=== PATIENT | male | born 1980 | race Caucasian/White ===

== ENCOUNTER 2016-10-26 16:52 | Emergency (ER) | payer OTHER, BC ==
[2016-10-26 16:53] VITALS: BMI 19.3
[2016-10-26 17:08] VITALS: RESP 16; TEMP 98.1; O2SAT 100
[2016-10-26] MEDS ORDERED: Oxycodone/Acetaminophen 5/325 mg Tab PO STA (17:17)
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
[2016-10-26 17:47] LABS: BASO # 0.02 K/mm3 (0.0-2.0); BASO % 0.3 % (0.0-3.0); EOS # 0.1 (0.0-0.7); EOS % 1.8 % (1.5-5.0); GRAN # 2.92 (1.4-6.5); GRAN % 44.7 % (50.0-68.0); HEMOGLOBIN 17.1 gm/dL (14.0-18.0); LYMPH % 45.6 % (22.0-35.0); MEAN CELL VOLUME 92.3 fL (80.0-105.0); MEAN CORPUSCULAR HEMOGLOBIN 33.8 pg (25.0-35.0); MEAN CORPUSCULAR HGB CONC 36.6 g/dl (31.0-37.0); MEAN PLATELET VOLUME 9.4 fl (7.0-11.0); MONO # 0.5 (0.1-0.6); MONO % 7.6 % (1.0-6.0); PLATELET COUNT 198 10^3/uL (120.0-450.0); RBC 5.06 10^6/uL (3.5-6.1); RED CELL DISTRIBUTION WIDTH 11.5 % (11.5-14.5); WHITE BLOOD COUNT 6.5 10^3/ul (4.5-11.0)
[2016-10-26 17:54] LABS: ALB/GLOB RATIO 1.2 (1.1-1.8); ALBUMIN 4.5 g/dL (3.0-4.8); ALT/SGPT 45 U/L (7-56); AST/SGOT 31 U/L (15-59); BLOOD UREA NITROGEN 16 mg/dL (7-21); CALCIUM 9.6 mg/dL (8.4-10.5); GFR AFRICAN-AMERICAN > 60; GFR NON-AFRICAN AMERICAN > 60
[2016-10-26 18:07] LABS: TROPONIN I < 0.01 ng/mL
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
[2016-10-26 19:40] VITALS: BP 180/90; PULSE 77
--- NOTE | 2016-10-27 10:46 | CARD ---
APPROVED REPORT EKG Measurement Heart [id number] <Conclusion> Normal sinus rhythm Possible Left atrial enlargement Left ventricular hypertrophy NSSTW changes
== END 2016-10-26 20:55 | disposition home or self-care (01) ==
LOC: ED 16:52
DX: M54.2 Cervicalgia (principal); I10 Essential (primary) hypertension

== ENCOUNTER 2017-09-01 00:47 | Observation (INO) | payer BC, OTHER ==
[2017-09-01 01:13] VITALS: BMI 23.3
--- NOTE | 2017-09-01 01:35 | ED PDOC ---
Arrival/HPI - General Historian: Patient <Ty Bell - Last Filed: 09/01/17 03:55> <Antonio Jones - Last Filed: 09/01/17 20:05> - General Chief Complaint: High Blood Pressure Time Seen by Provider: 09/01/17 01:05 - History of Present Illness Narrative History of Present Illness (Text): Patient is a 37 year old male with a past medical history of hypertension who presents to the emergency department for evaluation and treatment of chest palpitations. States he went to clinic yesterday morning where his blood pressure was reportedly 240/140s. Patient was given antihypertensives however felt anxious throughout the day. Admits to being diagnosed with hypertension in his early 20s but did not take medications because of a lack of experiencing symptoms. Currently denies headache, dizziness, fever, chills, chest pain, shortness of breath, abdominal pain, nausea, vomiting, diarrhea, constipation, and urinary symptoms. PMD: not established 09/01/17 01:30 (Ty Bell) Past Medical History - Provider Review Nursing Documentation Reviewed: Yes - Travel History Have you recently traveled outside [place] w/in the past 3 mons?: No - Cardiac Hx Cardiac Disorders: Yes Hx Hypertension: Yes - Pulmonary Hx Respiratory Disorders: No - Neurological Hx Neurological Disorder: No - HEENT Hx HEENT Disorder: No - Renal Hx Renal Disorder: No - Endocrine/Metabolic Hx Endocrine Disorders: No - Hematological/Oncological Hx Blood Disorders: No - Psychiatric Hx Substance Use: No - Anesthesia Hx Anesthesia: No <Ty Bell - Last Filed: 09/01/17 03:55> Family/Social History - Physician Review Nursing Documentation Reviewed: Yes Family/Social History: Hypertension, CAD/[place] Smoking Status: Never Smoked Hx Alcohol Use: No Hx Substance Use: No <Ty Bell - Last Filed: 09/01/17 03:55> Allergies/Home Meds <Ty Bell - Last Filed: 09/01/17 03:55> <Antonio Jones - Last Filed: 09/01/17 20:05> Allergies/Adverse Reactions: Allergies No Known Allergies Allergy (Verified 09/01/17 01:13) Home Medications: Home Meds Medication Instructions Recorded Confirmed Losartan/Hydrochlorothiazide 1 tab PO DAILY 06/10/18 06/10/18 [Losartan-Hctz 100-25 mg Tab] amLODIPine [Norvasc] 5 mg PO DAILY 09/01/17 09/01/17 Review of Systems - Physician Review All systems were reviewed & negative as marked: Yes - Review of Systems Constitutional: Normal Eyes: Normal ENT: Normal Respiratory: Normal Cardiovascular: Palpitations Gastrointestinal: Normal Genitourinary Male: Normal Musculoskeletal: Normal Skin: Normal Neurological: Normal Endocrine: Normal Hemo/Lymphatic: Normal Psychiatric: Normal <BellTy roche - Last Filed: 09/01/17 03:55> Physical Exam Temperature: Afebrile Blood Pressure: Hypertensive Pulse: Regular Respiratory Rate: Normal Appearance: Positive for: Well-Appearing, Non-Toxic Pain Distress: None Mental Status: Positive for: Alert and Oriented X 3 - Systems Exam Head: Present: Atraumatic, Normocephalic Pupils: Present: PERRL Extroacular Muscles: Present: EOMI Conjunctiva: Present: Normal Mouth: Present: Moist Mucous Membranes Nose (External): Present: Atraumatic Neck: Present: Normal Range of Motion Respiratory/Chest: Present: Clear to Auscultation, Good Air Exchange. No: Respiratory Distress, Accessory Muscle Use Cardiovascular: Present: Regular Rate and Rhythm, Normal S1, S2 Abdomen: Present: Normal Bowel Sounds. No: Tenderness, Distention, Peritoneal Signs Upper Extremity: Present: Normal Inspection Lower Extremity: Present: Normal Inspection Neurological: Present: GCS=15, CN II-XII Intact, Speech Normal, Motor Func Grossly Intact, Normal Sensory Function Psychiatric: Present: Alert, Oriented x 3, Normal Insight, Normal Concentration , Normal Affect, Normal Mood <Ty Bell - Last Filed: 09/01/17 03:55> Vital Signs Temp Pulse Pulse Resp BP Pulse Ox 09/01/17 05:36 98.3 F 86 18 160/104 H 98 09/01/17 05:26 97.9 F 88 80 18 160/101 H 09/01/17 05:04 98.3 F 79 19 164/117 H 98 09/01/17 04:32 98.3 F 89 18 181/120 H 99 09/01/17 03:59 89 190/137 H 09/01/17 03:28 85 18 189/140 H 100 09/01/17 02:43 83 183/127 H 09/01/17 01:00 98.3 F 76 16 187/127 H 99 Medical Decision Making - Lab Interpretations I have reviewed the lab results: Yes - EKG Interpretation Interpreted by ED Physician: Yes Type: 12 lead EKG <Ty Bell - Last Filed: 09/01/17 03:55> <Antonio Jones - Last Filed: 09/01/17 20:05> ED Course and Treatment: Assessment and Plan: Patient is a 37 year old male with a past medical history of hypertension who presents to the emergency department for evaluation and treatment of chest palpitations. Hypertensive Urgency Chest Palpitations - CBC, CMP, Cardiac Isos - PT, PTT - Chest X-ray - EKG - Urinalysis 09/01/17 03:56 - elevated Hgb noted - pressure remains elevated- hydralazine 10mg IV x 1 - patient admitted under Dr. Ritchie service (Ty Bell) 09/01/17 02:11 Ky Mitchell is a 37 year old male who presents to the emergency department for a complaint of chest palpitations. In agreement with resident note which contains more details about the patient. Patient was seen and evaluated with resident. Came up with plan and treatment together. 09/01/17 20:05 seent with residnet chest pain/palpiations x few hours. atypical pain, however pain symptoms less than 6 hour onset will need serial trops. accepted by dr wan. (Antonio Jones) - Lab Interpretations Lab Results: 09/01/17 01:40 09/01/17 01:40 Lab Results 09/01/17 02:45: Urine Color Yellow, Urine Appearance Clear, Urine pH 6.5, Ur Specific [place] 1.010, Urine Protein Negative, Urine Glucose (UA) Negative, Urine Ketones Trace H, Urine Blood Negative, Urine Nitrate Negative, Urine Bilirubin Negative, Urine Urobilinogen 0.2, Ur Leukocyte Esterase Negative 09/01/17 01:40: Sodium 142, Potassium 4.0, Chloride 100, Carbon Dioxide 28, Anion Gap 19, BUN 12, Creatinine 1.0, Est GFR ( Amer) > 60, Est GFR (Non- Af Amer) > 60, Random Glucose 103, Calcium 9.9, Magnesium 1.9, Total Bilirubin 1.0, AST 33, ALT 41, Alkaline Phosphatase 78, Lactate Dehydrogenase 443, Total Creatine Kinase 65, Troponin I < 0.01, Total Protein 8.6 H, Albumin 4.7, Globulin 3.9, Albumin/Globulin Ratio 1.2 09/01/17 01:40: PT 11.4, INR 1.00, APTT 47.6 H 09/01/17 01:40: WBC 8.1 D, RBC 5.41, Hgb 18.3 H*, Hct 50.0, MCV 92.4, MCH 33.8 , MCHC 36.6, RDW 11.6, Plt Count 224, MPV 9.8, Gran % 63.2, Lymph % (Auto) 26.6 , [place] % (Auto) 8.0 H, Eos % (Auto) 2.1, Baso % (Auto) 0.1, Gran # 5.09, Lymph # (Auto) 2.1, [place] # (Auto) 0.6, Eos # (Auto) 0.2, Baso # (Auto) 0.01 - RAD Interpretation Radiology Orders: 09/01/17 01:30 CHEST PORTABLE [RAD] Stat - EKG Interpretation EKG Interpretation (Text): 09/01/17 01:39 EKG- NSR Left Ventricular hypertrophy, HR 69 bpm, QTc 432, (Ty Bell) - Medication Orders Current Medication Orders: Amlodipine Besylate (Norvasc) 10 mg PO DAILY [facility] Aspirin (Aspirin) 325 mg PO DAILY [facility] Last Admin: 09/01/17 10:04 Dose: 325 mg Famotidine (Pepcid) 40 mg PO HS [facility] Hydralazine HCl (Apresoline) 10 mg IVP Q4H PRN PRN Reason: Systolic Blood Pressure Last Admin: 09/01/17 17:22 Dose: 10 mg IVP Administration Document 09/01/17 17:22 KMS (Rec: 09/01/17 17:22 [id number] Charges for Administration # of IVP Administrations 1 MAY Pulse and Blood Pressure Document 09/01/17 17:22 KMS (Rec: 09/01/17 17:22 [id number]) Blood Pressure Blood Pressure (100/60-150/90) 185/105 Hydrochlorothiazide (Hydrodiuril) 25 mg PO DAILY [facility] Last Admin: 09/01/17 10:05 Dose: 25 mg Hydrochlorothiazide (Hydrodiuril) 25 mg PO DAILY [facility] Last Admin: 09/01/17 12:23 Dose: 25 mg Losartan Potassium (Cozaar) 100 mg PO DAILY [facility] Last Admin: 09/01/17 10:05 Dose: 100 mg Metoprolol Tartrate (Lopressor) 25 mg PO BID [facility] Last Admin: 09/01/17 17:21 Dose: 25 mg MAR Pulse and Blood Pressure Document 09/01/17 17:21 KM (Rec: 09/01/17 17:21 [place] [id number]) Blood Pressure Blood Pressure (100/60-150/90) 185/105 Discontinued Medications Amlodipine Besylate (Norvasc) 5 mg PO DAILY [facility] Last Admin: 09/01/17 10:05 Dose: 5 mg MAR Pulse and Blood Pressure Document 09/01/17 10:05 [facility] (Rec: 09/01/17 10:05 [place] [id number]) Pulse Pulse Rate (60-90) 104 Blood Pressure Blood Pressure (100/60-150/90) 172/127 Aspirin (Aspirin) 325 mg PO STAT ST[facility] Stop: 09/01/17 03:45 Last Admin: 09/01/17 04:02 Dose: 325 mg Hydralazine HCl (Apresoline) 10 mg IVP STAT [facility] Stop: 09/01/17 03:46 Last Admin: 09/01/17 03:59 Dose: 10 mg IVP Administration Document 09/01/17 03:59 [place] (Rec: 09/01/17 04:02 [id number]) Charges for Administration # of IVP Administrations 1 MAR Pulse and Blood Pressure Document 09/01/17 03:59 [place] (Rec: 09/01/17 04:02 [id number]) Pulse Pulse Rate (60-90) 89 Blood Pressure Blood Pressure (100/60-150/90) 190/137 Lorazepam (Ativan) 0.5 mg IVP STAT STA PRN Reason: Protocol Stop: 09/01/17 02:03 Last Admin: 09/01/17 02:28 Dose: 0.5 mg IVP Administration Document 09/01/17 02:28 (Rec: 09/01/17 02:28 [id number] Charges for Administration # of IVP Administrations 1 Non-Formulary Medication (Losartan/Hydrochlorothiazide [Losartan-Hctz 100-25 Mg Tab]) 1 tab PO DAILY [facility] <Ty Bell - Last Filed: 09/01/17 03:55> - Scribe Statement The provider has reviewed the documentation as recorded by the Scribe <Antonio Jones - Last Filed: 09/01/17 20:05> - Scribe Statement Cande Conroy Provider Scribe Attestation: All medical record entries made by the Scribe were at my direction and personally dictated by me. I have reviewed the chart and agree that the record accurately reflects my personal performance of the history, physical exam, medical decision making, and the department course for this patient. I have also personally directed, reviewed, and agree with the discharge instructions and disposition. (Antonio Jones) Disposition/Present on Arrival - Present on Arrival Any Indicators Present on Arrival: No History of DVT/PE: No History of Uncontrolled Diabetes: No Urinary Catheter: No History of Decub. Ulcer: No History Surgical Site Infection Following: None - Disposition Have Diagnosis and Disposition been Completed?: Yes Disposition Time: 04:06 Patient Plan: Admission <Ty Bell - Last Filed: 09/01/17 03:55> <Antonio Jones - Last Filed: 09/01/17 20:05> - Disposition Diagnosis: Hypertension, Palpitation Disposition: HOSPITALIZED Patient Problems: Current Active Problems Problem Status Onset Hypertension Acute Palpitation Acute Condition: GOOD
[2017-09-01 02:05] LABS: ALB/GLOB RATIO 1.2 (1.1-1.8); ALBUMIN 4.7 g/dL (3.0-4.8); ALT/SGPT 41 U/L (7-56); AST/SGOT 33 U/L (17-59); BASO # 0.01 K/mm3 (0.0-2.0); BASO % 0.1 % (0.0-3.0); BLOOD UREA NITROGEN 12 mg/dL (7-21); CALCIUM 9.9 mg/dL (8.4-10.5); EOS # 0.2 (0.0-0.7); EOS % 2.1 % (1.5-5.0); GFR AFRICAN-AMERICAN > 60; GFR NON-AFRICAN AMERICAN > 60; GRAN # 5.09 (1.4-6.5); GRAN % 63.2 % (50.0-68.0); LYMPH # 2.1 (1.2-3.4); LYMPH % 26.6 % (22.0-35.0); MEAN CELL VOLUME 92.4 fl (80.0-105.0); MEAN CORPUSCULAR HEMOGLOBIN 33.8 pg (25.0-35.0); MEAN CORPUSCULAR HGB CONC 36.6 g/dl (31.0-37.0); MEAN PLATELET VOLUME 9.8 fl (7.0-11.0); MONO # 0.6 (0.1-0.6); RBC 5.41 10^6/uL (3.5-6.1); RED CELL DISTRIBUTION WIDTH 11.6 % (11.5-14.5); WHITE BLOOD COUNT 8.1 10^3/ul (4.5-11.0)
[2017-09-01 02:11] LABS: PARTIAL THROMBOPLASTIN TIME 47.6 Seconds (25.1-36.5); PROTHROMBIN TIME 11.4 SECONDS (9.4-12.5)
[2017-09-01 02:14] LABS: HEMOGLOBIN 18.3 g/dL (14.0-18.0)
[2017-09-01 02:16] LABS: TROPONIN I < 0.01 ng/mL
[2017-09-01 03:12] LABS: PH,URINE 6.5 (4.7-8.0); URINE BILIRUBIN NEGATIVE (NEGATIVE); URINE BLOOD NEGATIVE (NEGATIVE); URINE GLUCOSE (UA) NEGATIVE (NEGATIVE); URINE LEUKOCYTE ESTERASE NEGATIVE Leu/uL (NEGATIVE); URINE PROTEIN NEGATIVE mg/dL (<30 mg/dL); URINE UROBILINOGEN 0.2 E.U./dL (<1 E.U./dL)
[2017-09-01 03:13] LABS: URINE APPEARANCE CLEAR (CLEAR); URINE COLOR YELLOW (YELLOW)
--- NOTE | 2017-09-01 08:22 | RAD ---
HISTORY: palpitations COMPARISON: No prior. FINDINGS: LUNGS: No active pulmonary disease. PLEURA: No significant pleural effusion identified, no pneumothorax apparent. CARDIOVASCULAR: Normal. OSSEOUS STRUCTURES: No significant abnormalities. VISUALIZED UPPER ABDOMEN: Normal. OTHER FINDINGS: None. IMPRESSION: No active disease.
--- NOTE | 2017-09-01 09:55 | CP.PCM.CON ---
History of Present Illness - History of Present Illness History of Present Illness: Lying in bed, awake,alert,oriented, complaining of chest palpitations,denies shortness of breath Reason for consultation: Cardiac evaluation, chest palpitation, uncontrolled hypertension (initial BP 189/140 in ER) Brief history of present illness: A 37 year old male who came in to the ER due to chest palpitations. He went to the clinic 1 day [employer] and his BP was 240/140' s. He was given antihypertensive medications and was sent home. He felt anxious yesterday and decided to go to the ER. initial blood pressure in ER was 189/ 140. He was diagnosed with hypertension in his early 20's but did not take medications due to not experiencing any symptoms. Denies shortness of breath, denies chest pain. Seen and examined by me and Dr. Cox Review of Systems - Constitutional Constitutional: As Per HPI - EENT Additional comments: denies any problems - Cardiovascular Additional comments: palpitations - Respiratory Additional comments: denies any problems - Gastrointestinal Additional comments: denies nausea and vomiting - Genitourinary Additional comments: denies any problems Past Patient History - Past Social History Smoking Status: Never Smoked - CARDIAC Hx Cardiac Disorders: Yes Hx Hypertension: Yes - PULMONARY Hx Respiratory Disorders: No - NEUROLOGICAL Hx Neurological Disorder: No - HEENT Hx HEENT Problems: No - RENAL Hx Chronic Kidney Disease: No - ENDOCRINE/METABOLIC Hx Endocrine Disorders: No - HEMATOLOGICAL/ONCOLOGICAL Hx Blood Disorders: No - MUSCULOSKELETAL/RHEUMATOLOGICAL Hx Falls: No - PSYCHIATRIC Hx Substance Use: No - SURGICAL HISTORY Hx Surgeries: No - ANESTHESIA Hx Anesthesia: No Meds Allergies/Adverse Reactions: Allergies Allergy/AdvReac Type Severity Reaction Status Date / Time No Known Allergies Allergy Verified 09/01/17 01:13 - Medications Medications: Current Medications Amlodipine Besylate (Norvasc) 5 mg PO DAILY [facility] Aspirin (Aspirin) 325 mg PO DAILY [facility] Famotidine (Pepcid) 40 mg PO HS [facility] Hydralazine HCl (Apresoline) 10 mg IVP Q4H PRN PRN Reason: Systolic Blood Pressure Hydrochlorothiazide (Hydrodiuril) 25 mg PO DAILY [facility] Losartan Potassium (Cozaar) 100 mg PO DAILY [facility] Physical Exam - Constitutional Appears: No Acute Distress - Head Exam Head Exam: NORMOCEPHALIC - Eye Exam Eye Exam: Normal appearance - ENT Exam ENT Exam: Mucous Membranes Moist - Respiratory Exam Respiratory Exam: Clear to Auscultation Bilateral, NORMAL BREATHING PATTERN - Cardiovascular Exam Cardiovascular Exam: REGULAR RHYTHM, +S1, +S2 Additional comments: NSR 80's/min telemetry - GI/Abdominal Exam GI & Abdominal Exam: Normal Bowel Sounds, Soft - Neurological Exam Neurological exam: Alert, Oriented x3 - Psychiatric Exam Psychiatric exam: Normal Affect, Normal Mood - Skin Skin Exam: Intact, Normal Color, Warm Results - Vital Signs Recent Vital Signs: Last Vital Signs Temp 97.9 F 09/01/17 06:00 Pulse 88 09/01/17 06:00 Resp 18 09/01/17 06:00 BP 160/101 H 09/01/17 06:00 Pulse Ox 98 09/01/17 06:00 - Labs Result Diagrams: 09/01/17 01:40 09/01/17 01:40 Assessment & Plan - Assessment and Plan (Free Text) Assessment: A 37 year old male who came in to the ER due to chest palpitations. He went to the clinic 1 day prior to coming to [facility] ER and his BP was 240/140's. He was given antihypertensive medications and was sent home. He felt anxious yesterday and decided to go to the ER. He was diagnosed with hypertension in his early 20' s but did not take medications due to not experiencing any symptoms. Denies shortness of breath, denies chest pain. Denies any other medical history. No previous cardiac work up at [facility]. Plan: Troponin level normal Uncontrolled hypertension Started on Norvasc 5 mg daily,Hydrodiuril 25 mg daily, Cozaar 100 mg daily, Hydralazine 10 mg IVP every 4 hours PRN Will increase Norvasc to 10 mg daily EKG showed NSR, 69/min , with left ventricular hyperthropy Will order ECHO to evaluate LV function Continue current treatment Continue current medications Hemoglobin elevated 18.3 and PTT 47.6 Consider hematology consult Cardiac diet Will follow up Plan and treatment discussed with Dr. Cox Thank you for the opportunity in taking care of Mr. Ky Mitchell - Date & Time Date: 09/01/17 Time: 07:05
[2017-09-01] MEDS ORDERED: Non Formulary Medication (Losartan/Hydrochlorothiazide [Losartan-Hctz 100-25 Mg Tab] 1 TAB PO SCH (10:00)
--- NOTE | 2017-09-01 10:56 | CARD ---
APPROVED REPORT EKG Measurement Heart [id number] IN [id number] [id number] <Conclusion> Normal sinus rhythm Left ventricular hypertrophy with repolarization abnormality No change
[2017-09-02 00:05] VITALS: O2SAT 97
[2017-09-02 08:07] LABS: BASO # 0.02 K/mm3 (0.0-2.0); BASO % 0.2 % (0.0-3.0); EOS % 0.4 % (1.5-5.0); GRAN # 6.03 (1.4-6.5); GRAN % 72.4 % (50.0-68.0); LYMPH # 1.6 (1.2-3.4); LYMPH % 18.8 % (22.0-35.0); MEAN CELL VOLUME 93.5 fl (80.0-105.0); MEAN CORPUSCULAR HGB CONC 35.3 g/dl (31.0-37.0); MEAN PLATELET VOLUME 9.8 fl (7.0-11.0); MONO # 0.7 (0.1-0.6); MONO % 8.2 % (1.0-6.0); RBC 5.51 10^6/uL (3.5-6.1); WHITE BLOOD COUNT 8.3 10^3/ul (4.5-11.0)
[2017-09-02 08:10] LABS: HEMOGLOBIN 18.2 g/dL (14.0-18.0)
[2017-09-02 08:56] LABS: LDL CHOLESTEROL 143 mg/dL (0-129)
[2017-09-02 09:03] LABS: ALB/GLOB RATIO 1.2 (1.1-1.8); ALBUMIN 4.5 g/dL (3.0-4.8); ALT/SGPT 40 U/L (7-56); AST/SGOT 27 U/L (17-59); BLOOD UREA NITROGEN 28 mg/dL (7-21); CALCIUM 9.4 mg/dL (8.4-10.5); GFR AFRICAN-AMERICAN > 60; GFR NON-AFRICAN AMERICAN > 60; HDL CHOLESTEROL 50 mg/dL (29-60)
--- NOTE | 2017-09-02 09:49 | CARD ---
APPROVED REPORT EKG Measurement Heart [id number] IA 146P75 [id number] <Conclusion> Sinus tachycardia Left ventricular hypertrophy with repolarization abnormality STTW changes c/w ischemia Prolonged QTc
--- NOTE | 2017-09-02 15:10 | PN ---
DATE: 09/02/2017 REASON FOR CONSULTATION AND FOLLOWUP: Uncontrolled hypertension, cardiac evaluation, initial blood pressure in the ER was 189/140, noncompliance to medications. SUBJECTIVE: The patient denies any chest pain, shortness of breath, or any palpitations. Feels a lot better. Wanted to go home. PHYSICAL EXAMINATION: VITAL SIGNS: Temperature afebrile, heart rate 98, blood pressure 164/105. HEENT: PERRLA. Extraocular muscles intact. NECK: Supple. No carotid bruit or thyromegaly. CHEST: Clear to auscultation. HEART: S1, S2 regular. ABDOMEN: Soft. EXTREMITIES: Clubbing, cyanosis negative. LABORATORY DATA: Blood workup as follows: WBC 8.3, hemoglobin , hematocrit 51.5, platelet count 233. Chemistry shows sodium 140, potassium 3.5, chloride 100, carbon dioxide 25, anion gap of 18, BUN 28, creatinine 1.3. TSH is 1.4. Triglyceride 118, total cholesterol 138, LDL 143, HDL 50. Troponin remained negative at 0.01, 0.01, 0.04, and 0.03. IMPRESSION: No evidence of acute myocardial infarction, uncontrolled hypertension, hypertriglyceridemia, hypokalemia. The patient was told a year ago to be on amlodipine and losartan, but the patient is noncompliant, came in with uncontrolled hypertension. RECOMMENDATIONS: We will get echo to assess LV function. Continue losartan 100 mg daily. Continue hydrochlorothiazide 25 mg daily. Continue metoprolol 25 mg daily. The patient is also on amlodipine 10 mg daily and will put on spironolactone and monitor the blood pressure. If the blood pressure after these medications remained stable, possible discharge. We will schedule a stress test as an outpatient. Discussed with the patient and sheet was given to Frida, Cardiology to schedule a stress test in 1-2 weeks. We will reassess in two hours for the blood pressure. If remained stable, we will discontinue telemetry and possible discharge if echo remained within the normal limit. Thank you, Dr. Macias, for providing us the opportunity in taking care of the patient, Ky Mitchell. Jackie Cox MD
--- NOTE | 2017-09-02 16:00 | HP ---
DATE OF EXAM: 09/01/2017 Patient was seen and examined on the bedside on 09/01/2017. CHIEF COMPLAINT: High blood pressure, palpitation, shortness of breath. HISTORY OF PRESENT ILLNESS: Mr. Ky Mitchell is a 37-year-old male with past medical history of hypertension and past family history of high blood pressure, came to the emergency department for evaluation and treatment of chest pain. Patient's blood pressure was reported at 240/140. Patient was given antihypertensive medication, slightly anxious throughout the day, admits to being diagnosed with hypertension since he was in the 20s and did not take medication because of lack of experiencing symptoms. Currently, denies headache, fever, chills, nausea, vomiting, or diarrhea. No shortness of breath. No abdominal pain. No constipation. No urinary symptoms. PAST MEDICAL HISTORY: History of hypertension. FAMILY HISTORY: Hypertension, coronary artery disease, and [place]. HABITS: Never smoked. No drugs. No ethanol. ALLERGIES: PATIENT IS NOT ALLERGIC WITH ANY MEDICATIONS. HOME MEDICATIONS: hydrochlorothiazide, amlodipine. REVIEW OF SYSTEMS: Patient was seen and examined on the bedside on 09/01/2017. was sitting on the bedside also. That moment, no headache, no dizziness. Feeling sometimes little bit of palpitation. No fever. No chills. No nausea, vomiting, or diarrhea. No headache. No dizziness. No feeling of passing out. PHYSICAL EXAMINATION: VITAL SIGNS: Temperature 98.3, pulse 86, blood pressure 116/104 and 187/27. HEENT: Head normocephalic, atraumatic. Eyes, PERRLA. Extraocular muscles intact. Conjunctivae clear. Nose patent. Mucous membranes moist. NECK: Supple. No carotid bruit, JVD, or thyromegaly. CHEST: Bilaterally symmetrical. HEART: S1 and S2 positive. LUNGS: Clear to auscultation. ABDOMEN: Soft. Bowel sounds present. No organomegaly. EXTREMITIES: No edema. No cyanosis. NEUROLOGIC: Patient is awake and alert. Moving all four extremities. No focal deficit. LABORATORY DATA: White blood cells 8.1, hemoglobin 18.3, hematocrit 50.0, platelets of 224. Sodium 140, potassium 4.0, BUN 12, creatinine 1.0, glucose 103. ASSESSMENT AND PLAN: Mr. Ky Mitchell is a 37-year-old male with polycythemia, came with high blood pressure, palpitation. Called Cardiology consult with Dr. Kilpatrick. Chest x-ray was done. Patient seen by Dr. Shonna Marino's nurse practitioner. Blood pressure looks like was uncontrolled. Palpitation is better. Actually, patient was sent by one of the clinic in [facility] to ER because blood pressure of 240/110. He was given antihypertensive medications , but looking anxious and according to him, he in the 20s he used to have high blood pressure, Denies shortness of breath, chest pain. Discussion done with patient's . All questions answered. Repeat labs. Troponin is normal. Started Norvasc 5 mg, HydroDIURIL 25 mg, Cozaar 100, hydralazine 10 IV every 4 hours p.r.n. We will order echo to evaluate left ventricular function. Called Cardiology consult. Discussion done with . We will repeat labs. We will follow up. Lisa Macias MD MTDD
[2017-09-02 17:51] VITALS: BP 164/87
[2017-09-02 18:03] VITALS: RESP 20; TEMP 98.5
[2017-09-02 18:19] VITALS: PULSE 94
--- NOTE | 2017-09-02 21:35 | US ---
PROCEDURE: Bilateral renal artery duplex ultrasound. CLINICAL HISTORY: Renal artery stenosis. Uncontrolled hypertension. Evaluate for renovascular hypertension. PHYSICIAN(S): Julito Friend M.D. TECHNIQUE: Duplex sonography with color-flow Doppler was used to evaluate the visualized segments of the main renal arteries. The patient was evaluated in a fasting state. Imaging in a supine and decubitus position was performed. Limited evaluation of the arcuate waveforms and resistive indices were performed. FINDINGS: The overall quality of the study is adequate. The kidneys are normal in size, shape, and location. The right kidney measures 9.8cm in length and the left kidney measures 11.1cm in length. No solid renal masses, abnormal calcifications, or hydronephrosis is seen. The main right renal artery is well visualized from the aorta to the hilum. The peak systolic velocity in the right main renal artery is 131 cm/sec. This is consistent with a 0 to 49% stenosis in the main right renal artery. The arcuate waveforms are normal. The resistive index is normal. The main left renal artery is also fairly well seen from its origin to the renal hilum. The peak systolic velocity in the main left renal artery is 134cm/sec. This corresponds to a 0 to 49% stenosis in the main left renal artery. The arcuate waveforms and resistive indices are normal. IMPRESSION: 1. The main renal arteries are fairly well visualized. 2. No sonographically significant stenosis is identified. 3. The kidneys are normal and symmetric in size. There are no solid renal masses, abnormal calcifications or hydronephrosis noted.
--- NOTE | 2017-09-03 12:38 | CARD ---
APPROVED REPORT EXAM: Two-dimensional and M-mode echocardiogram with Doppler and color Doppler. INDICATION 2D DIMENSIONS IVSd1.5 (0.7-1.1cm)LVDd4.3 (3.9-5.9cm) PWd1.2 (0.7-1.1cm)LVDs2.6 (2.5-4.0cm) FS (%) 38.6 %LVEF (%)69.3 (>50%) M-Mode DIMENSIONS Left Atrium (MM)3.40 (2.5-4.0cm)Aortic Root2.90 (2.2-3.7cm) Aortic Cusp Exc.1.70 (1.5-2.0cm) Aortic Valve AoV Peak Pytcmvro609.0cm/Janae Peak GR.9mmHg Mitral Valve MV E Lyulwbpa51.6cm/sMV A Ypbcmkwd78.1cm/sE/A ratio1.0 TDI Lateral E' Peak V6.19cm/sMedial E' Peak V7.21cm/sE/Lateral E'11.1 E/Medial E'9.5 Tricuspid Valve TR Peak Zhbskeiq870zt/sRAP UESRBIIN14duNhZI Peak Gr.26mmHg [id number] LEFT VENTRICLE The left ventricle is normal size. There is moderate concentric left ventricular hypertrophy. The left ventricular function is normal.EF-65% There is normal LV segmental wall motion. Transmitral Doppler flow pattern is Grade II-pseudonormal filling dynamics. No left ventricle thrombus noted on this study. There is no ventricular septal defect visualized. There is no left ventricular aneurysm. There is no mass noted in the left ventricle. RIGHT VENTRICLE The right ventricle is normal size. There is normal right ventricular wall thickness. The right ventricular systolic function is normal. ATRIA The left atrium size is normal. The right atrium size is normal. The interatrial septum is intact with no evidence for an atrial septal defect. AORTIC VALVE The aortic valve is thickened but opens well. No aortic regurgitation is present. There is no aortic valvular stenosis. There is no aortic valvular vegetation. MITRAL VALVE The mitral valve is thickened but opens well. Mitral regurgitation is trace. There is no mitral valve stenosis. There is no evidence of mitral valve prolapse. TRICUSPID VALVE The tricuspid valve leaflets are thickened , but open well. There is trace tricuspid regurgitation.RVSP-36 mmof hg. There is no tricuspid valve stenosis. There is no tricuspid valve prolapse or vegetation. PULMONIC VALVE The pulmonary valve is normal in structure. There is no pulmonic valvular regurgitation. There is no pulmonic valvular stenosis. GREAT VESSELS The aortic root is normal in size. The ascending aorta is normal in size. The pulmonary artery is normal. The IVC is normal in size and collapses >50% with inspiration. PERICARDIAL EFFUSION There is no pleural effusion. There is no pericardial effusion. <Conclusion> Normal chamber Size. LVH, EF-65% Trace MR/TR RVSP-36 mmof hg.
== END 2017-09-02 19:10 | disposition home or self-care (01) ==
LOC: ED 00:47 → ERH 03:45 → 2RSO 05:49
PROVIDERS: ADMIT Internal Medicine; ATTEND Internal Medicine
DX: I10 Essential (primary) hypertension (principal); D75.1 Secondary polycythemia; Z79.899 Other long term (current) drug therapy; Z91.14 Patient's other noncompliance with medication regimen; Z82.49 Family history of ischemic heart disease and other diseases of the circulatory system; R00.2 Palpitations; E78.1 Pure hyperglyceridemia; E87.6 Hypokalemia
CPT/HCPCS: 36415; 71045; 80053; 80061; 81003; 82550; 83615; 83735; 84100; 84443; 84484; 85025; 85610; 85730; 93005; 93306; 93975; 96374; 96375; 96376; 99285; G0378; J0360; J2060

== ENCOUNTER 2017-11-27 19:02 | Emergency (ER) | payer BC ==
[2017-11-27 19:13] VITALS: BMI 21.3
[2017-11-27 19:15] VITALS: RESP 18; TEMP 98.5
[2017-11-27] MEDS ORDERED: Labetalol 5 mg/ml Inj 20ML IV STA (20:28)
--- NOTE | 2017-11-27 20:28 | ED PDOC ---
Arrival/HPI - General Historian: Patient, Spouse <En Vann - Last Filed: 11/27/17 22:03> <Randy Damico - Last Filed: 11/30/17 11:18> - General Chief Complaint: GI Problem Time Seen by Provider: 11/27/17 19:44 - History of Present Illness Narrative History of Present Illness (Text): 11/27/17 20:17 37 year old male, past medical history of hypertension and hemorrhoids, presents to the emergency department with worsening pain with bowel movements secondary to prolapsed hemorrhoid. Patient has had hemorrhoids for over 10 years however recently it has become more uncomfortable. He states spicy foods aggravate the hemorrhoids and for the past week he has been eating very spicy faroese and malay food. He has been using preparation H for symptomatic relief however when the hemorrhoid prolapses he has difficulty reducing it. With bowel movements he does endorse bleeding. 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 Of note, upon arrival his blood pressure was elevated. He has a history of high blood pressure currently being controlled by Losartan and Amlodipine. He states his pressures at home are usually 130-140/90. When he gets nervous or stressed his blood pressure does rise and believes that is the case today. Repeat BP was 185/115. Denies fever, chills, nausea, vomiting, shortness of breath, cough, chest pain, palpitations, headache, dizziness, gait abnormalities, abdominal pain, or urinary symptoms. (En Vann) Past Medical History - Provider Review Nursing Documentation Reviewed: Yes - Infectious Disease Hx of Infectious Diseases: None - Cardiac Hx Cardiac Disorders: Yes Hx Hypertension: Yes - Pulmonary Hx Respiratory Disorders: No - Neurological Hx Neurological Disorder: No - HEENT Hx HEENT Disorder: No - Renal Hx Renal Disorder: No - Endocrine/Metabolic Hx Endocrine Disorders: No - Hematological/Oncological Hx Blood Disorders: No - Integumentary Hx Dermatological Disorder: No - Musculoskeletal/Rheumatological Hx Musculoskeletal Disorders: No - Gastrointestinal Hx Gastrointestinal Disorders: No - Genitourinary/Gynecological Hx Genitourinary Disorders: No - Psychiatric Hx Psychophysiologic Disorder: No Hx Substance Use: No - Anesthesia Hx Anesthesia: No <En Vann - Last Filed: 11/27/17 22:03> Family/Social History - Physician Review Nursing Documentation Reviewed: Yes Family/Social History: Hypertension Smoking Status: Former Smoker Hx Alcohol Use: Yes Frequency of alcohol use: Socially Hx Substance Use: No <En Vann - Last Filed: 11/27/17 22:03> Allergies/Home Meds <En Vann - Last Filed: 11/27/17 22:03> <MookieRandy - Last Filed: 11/30/17 11:18> Allergies/Adverse Reactions: Allergies No Known Allergies Allergy (Verified 11/27/17 19:13) Home Medications: Home Meds Medication Instructions Recorded Confirmed Losartan/Hydrochlorothiazide 1 tab PO DAILY 09/01/17 11/27/17 [Losartan-Hctz 100-25 mg Tab] amLODIPine [Norvasc] 5 mg PO DAILY 09/01/17 11/27/17 Review of Systems - Physician Review All systems were reviewed & negative as marked: Yes - Review of Systems Constitutional: absent: Fevers Respiratory: absent: SOB, Cough Cardiovascular: absent: Chest Pain, Palpitations Gastrointestinal: Stool Changes, Hematochezia. absent: Abdominal Pain, Nausea, Vomiting Genitourinary Male: absent: Dysuria, Hematuria Neurological: absent: Headache, Dizziness, Gait Changes <En Vann - Last Filed: 11/27/17 22:03> Physical Exam Vital Signs Reviewed: Yes Temperature: Afebrile Blood Pressure: Hypertensive Pulse: Regular Respiratory Rate: Normal Appearance: Positive for: Well-Appearing, Non-Toxic, Comfortable Pain Distress: None Mental Status: Positive for: Alert and Oriented X 3 - Systems Exam Head: Present: Atraumatic, Normocephalic Pupils: Present: PERRL Extroacular Muscles: Present: EOMI Mouth: Present: Moist Mucous Membranes Respiratory/Chest: Present: Clear to Auscultation, Good Air Exchange. No: Respiratory Distress, Accessory Muscle Use Cardiovascular: Present: Regular Rate and Rhythm, Normal S1, S2, Peripheal Pulses Present. No: Murmurs Abdomen: No: Tenderness, Distention, Peritoneal Signs Rectal: Present: Occult Blood, Hemorrhoids, Normal Rectal Tone. No: Rectal Tenderness, Gross Blood, Melena Skin: Present: Warm, Dry, Normal Color. No: Rashes Psychiatric: Present: Alert, Oriented x 3 <SooEn - Last Filed: 11/27/17 22:03> <Randy Damico - Last Filed: 11/30/17 11:18> - Physical Exam Narrative Physical Exam (Text): Christiane Andujar All medical record entries made by the Scribe were at my direction and personally dictated by me. I have reviewed the chart and agree that the record accurately reflects my personal performance of the history, physical exam, medical decision making, and the department course for this patient. I have also personally directed, reviewed, and agree with the discharge instructions and disposition. (Randy Damico) Vital Signs Temp Pulse Resp BP Pulse Ox 11/27/17 21:33 71 18 141/101 H 100 11/27/17 21:11 72 18 140/108 H 98 11/27/17 20:42 80 185/115 H 11/27/17 19:14 98.5 F 75 18 195/116 H 99 Medical Decision Making <En Vann - Last Filed: 11/27/17 22:03> <Randy Damico - Last Filed: 11/30/17 11:18> ED Course and Treatment: 11/27/17 21:16 37M, PMH of HTN and hemorrhoids, presents with bleeding hemorrhoids. During examination no gross blood was noted. FOBT was positive. BP in ED was elevated. Given one dose of labetalol and BP went down to 145/108. CBC within normal limits. CMP showed low potassium, repleted in ED. EKG showed normal sinus with LVH, no t wave abnormalities. Patient is currently asymptomatic. Discussed in length about the importance of a proper diet with fiber and less spicy foods to alleviate hemorrhoid flares. Discussed the importance of exercise, low sodium diet, medication compliance, and regular follow up with primary medical doctor regarding hypertension. Patient will follow up with a general surgeon, Dr. Morel, regarding the hemorrhoids and further evaluation. Patient will follow up with primary medical doctor within the next 3-5 days. If symptoms worsen, please return to the ED. Patient verbalized agreement and understanding of the treatment plan. Case reviewed and discussed with attending provider. (En Vann) In agreement with resident note, which includes further HPI details. Patient was seen and evaluated with resident, came up with plan and treatment together. (Randy Damico) - Lab Interpretations Lab Results: 11/27/17 20:03 11/27/17 20:03 Lab Results 11/27/17 20:03: Sodium 141, Potassium 3.1 L, Chloride 101, Carbon Dioxide 28, Anion Gap 15, BUN 9, Creatinine 0.8, Est GFR ( Amer) > 60, Est GFR (Non- Af Amer) > 60, Random Glucose 96, Calcium 9.5, Phosphorus 3.3, Magnesium 2.0, Total Bilirubin 1.1, AST 24, ALT 31, Alkaline Phosphatase 73, Total Protein 7.9 , Albumin 4.4, Globulin 3.5, Albumin/Globulin Ratio 1.3 11/27/17 20:03: WBC 6.8, RBC 4.78, Hgb 15.9 D, Hct 44.2, MCV 92.5, MCH 33.3, MCHC 36.0, RDW 11.6, Plt Count 211, MPV 9.5, Gran % 58.1, Lymph % (Auto) 32.8, Peach % (Auto) 7.8 H, Eos % (Auto) 1.2 L, Baso % (Auto) 0.1, Gran # 3.96, Lymph # (Auto) 2.2, Peach # (Auto) 0.5, Eos # (Auto) 0.1, Baso # (Auto) 0.01 - Medication Orders Current Medication Orders: Discontinued Medications Labetalol HCl (Trandate) 10 mg IV STAT STA Stop: 11/27/17 20:29 Last Admin: 11/27/17 20:42 Dose: 10 mg eMAR Start Stop Document 11/27/17 20:42 AD (Rec: 11/27/17 20:42 AD [id number]) Intravenous Solution Start Date 11/27/17 Start Time 20:42 MAR Pulse and Blood Pressure Document 11/27/17 20:42 AD (Rec: 11/27/17 20:42 AD [id number]) Pulse Pulse Rate (60-90) 80 Blood Pressure Blood Pressure (100/60-150/90) 185/115 Potassium Chloride (K-Dur 20 Meq Er Tab) 20 meq PO STAT STA Stop: 11/27/17 20:59 Last Admin: 11/27/17 21:05 Dose: 20 meq - PA / CONTENT STRATEGIST / Resident Statement / has reviewed & agrees with the documentation as recorded. / has examined the patient and agrees with the treatment plan. <Randy Damico - Last Filed: 11/30/17 11:18> Disposition/Present on Arrival - Present on Arrival Any Indicators Present on Arrival: No History of DVT/PE: No History of Uncontrolled Diabetes: No Urinary Catheter: No History of Decub. Ulcer: No History Surgical Site Infection Following: None - Disposition Have Diagnosis and Disposition been Completed?: Yes Disposition Time: 21:28 Patient Plan: Discharge <En Vann - Last Filed: 11/27/17 22:03> <Randy Damico - Last Filed: 11/30/17 11:18> - Disposition Diagnosis: Hemorrhoid prolapse, Hypertension Disposition: HOME/ ROUTINE Condition: GOOD Discharge Instructions (ExitCare): DASH Diet, Hemorrhoids (DC), High Blood Pressure (DC), Low Salt Diet, Controlling Your Blood Pressure Through Lifestyle Additional Instructions: Patient will follow up with a general surgeon, Dr. Morel, regarding the hemorrhoids and further evaluation. Patient will follow up with primary medical doctor within the next 3-5 days. If symptoms worsen, please return to the ED. Referrals: Zack Morel MD [Staff Provider] - Follow up with primary Kassy Jasmine MD [Medical Doctor] - Follow up with primary Forms: [employer] (German)
[2017-11-27 20:44] LABS: BASO # 0.01 K/mm3 (0.0-2.0); BASO % 0.1 % (0.0-3.0); EOS # 0.1 (0.0-0.7); EOS % 1.2 % (1.5-5.0); GRAN # 3.96 (1.4-6.5); GRAN % 58.1 % (50.0-68.0); HEMOGLOBIN 15.9 g/dL (14.0-18.0); LYMPH # 2.2 (1.2-3.4); LYMPH % 32.8 % (22.0-35.0); MEAN CELL VOLUME 92.5 fl (80.0-105.0); MEAN CORPUSCULAR HEMOGLOBIN 33.3 pg (25.0-35.0); MEAN PLATELET VOLUME 9.5 fl (7.0-11.0); MONO # 0.5 (0.1-0.6); MONO % 7.8 % (1.0-6.0); RBC 4.78 10^6/uL (3.5-6.1); RED CELL DISTRIBUTION WIDTH 11.6 % (11.5-14.5); WHITE BLOOD COUNT 6.8 10^3/ul (4.5-11.0)
[2017-11-27 20:52] LABS: ALB/GLOB RATIO 1.3 (1.1-1.8); ALBUMIN 4.4 g/dL (3.0-4.8); ALT/SGPT 31 U/L (7-56); AST/SGOT 24 U/L (17-59); BLOOD UREA NITROGEN 9 mg/dL (7-21); CALCIUM 9.5 mg/dL (8.4-10.5); GFR NON-AFRICAN AMERICAN > 60
[2017-11-27] MEDS ORDERED: Potassium Chloride 20 mEq ER Tab PO STA (20:58)
[2017-11-27 22:07] VITALS: BP 141/101; PULSE 71; O2SAT 100
--- NOTE | 2017-11-28 16:14 | CARD ---
APPROVED REPORT Date of service: 11/27/2017 EKG Measurement Heart [id number] SD [id number] [id number] <Conclusion> Normal sinus rhythm Rightward axis Incomplete left bundle branch block Voltage criteria for left ventricular hypertrophy Abnormal ECG
== END 2017-11-27 21:33 | disposition home or self-care (01) ==
LOC: ED 19:02
DX: K64.8 Other hemorrhoids (principal); I10 Essential (primary) hypertension; Z87.891 Personal history of nicotine dependence